=== PATIENT | female | born 1985 | race Caucasian/White ===

== ENCOUNTER 2019-01-31 11:50 | Inpatient (IN) | payer MEDICAID, OTHER ==
[~2019-01-31] VITALS: Ht 170.2 cm; Wt 78.0 kg
[2019-01-31] VITALS (12 sets, daily range): BP systolic 88–132; BP diastolic 45–71
[~2019-01-31 11:50] MED LIST: GADODIAMIDE 2.5 MMOL/5 ML VIAL IJ ONE; GADODIAMIDE 5 MMOL/10 ML VIAL IJ ONE
--- NOTE | 2019-01-31 11:57 | NUR ---
C/O R SIDE OF THE FACE NUMBNESS AND DIZZY SINCE YESTERDAY 5PM. ALSO RIGHT-SIDED WEAKNESS. HAS HEADACHE 8/. SPEECH IS SLOW AND WEAK, BUT NO EVIDENCE OF SLURRING PRESENT. PT DENIES DIFFICULTY SWALLOWING. SHE IS AOX4, AMB, VSS, RR EVEN AND UNLABORED. DENIES SOB, N/V, SKIN INTACT. SEEN BY DR AHN.
--- NOTE | 2019-01-31 11:59 | NUR ---
CODE STROKE IMPLEMENTED
[2019-01-31 12:08] LABS: BASOPHILS # (AUTO) 0.1 /CMM (0.0-0.2); BASOPHILS % (AUTO) 0.8 % (0.0-2.0); EOSINOPHILS % (AUTO) 1.6 % (0.0-6.0); HEMATOCRIT 41 % (33-45); HEMOGLOBIN 13.6 g/dL (11.5-14.8); LYMPHOCYTES # (AUTO) 2.8 /CMM (0.8-4.8); LYMPHOCYTES % (AUTO) 43.8 % (20.0-44.0); MEAN CORPUSCULAR HGB CONC 33 g/dl (31.0-36.0); MEAN CORPUSCULAR VOLUME 94 fL (82-100); MONOCYTES # (AUTO) 0.4 /CMM (0.1-1.30); MONOCYTES % (AUTO) 5.9 % (2.0-12.0); NEUTROPHILS % (AUTO) 47.9 % (43.0-81.0); PLATELET COUNT (AUTO) 215 /CMM (150-450); RED BLOOD CELL COUNT(AUTO) 4.37 MIL/uL (4.0-5.2); WHITE BLOOD COUNT (AUTO) 6.4 K/uL (4.3-11.0)
[2019-01-31] MEDS ORDERED: IV NS 0.9% 250 ML IV ONE (12:08)
[2019-01-31] MEDS ORDERED: CT SWABBABLE VALVE TRANS SET 1 EA INFUS.SET MC ONE (12:08)
[2019-01-31] MEDS ORDERED: IOHEXOL-350 100 ML VIAL IV ONE (12:08)
[2019-01-31 12:16] LABS: CALCIUM, SERUM 9.1 mg/dL (8.5-10.1); CARBON DIOXIDE 28 mmol/L (21-32); CHLORIDE 106 mmol/L (98-107); CREATININE 0.7 mg/dL (0.6-1.3); GLUCOSE 90 mg/dL (74-106); POTASSIUM 3.7 mmol/L (3.5-5.1); SODIUM SERUM 144 mmol/L (136-145); UREA NITROGEN, BLOOD 17 mg/dL (7-18)
[2019-01-31 12:21] LABS: ALANINE AMINOTRANSFERASE 22 U/L (12-78); ALBUMIN 4.1 g/dL (3.4-5.0); ALKALINE PHOSPHATASE 82 U/L (46-116); ASPARTATE AMINOTRANSFERASE 12 U/L (15-37); BILIRUBIN,DIRECT 0.1 mg/dL (0.0-0.2); BILIRUBIN,TOTAL 0.2 mg/dL (0.2-1.0)
[2019-01-31] MEDS ORDERED: ASPIRIN 325 MG TABLET ONE (12:22)
[2019-01-31 12:28] LABS: CHOLESTEROL 166 mg/dL (<200); HDL CHOLESTEROL 64 mg/dL (40-60); LDL 92 mg/dL (0-99); TRIGLYCERIDES 90 mg/dL (30-150)
--- NOTE | 2019-01-31 12:28 | NUR ---
DUE TO PT ABILITY TO SWALLOW, PO MEDICATION GIVEN. NO COUGHING OR CHOKING EVIDENT.
[2019-01-31] MEDS ORDERED: ASPIRIN 325 MG TABLET PO ONE (12:30)
--- NOTE | 2019-01-31 12:49 | NUR ---
HOUSE SUP CALLED FOR ICU BED
--- NOTE | 2019-01-31 12:56 | NUR ---
DR BENTON, NEURO PAGED.
--- NOTE | 2019-01-31 13:13 | NUR ---
DR BENTON CALLED [phone]
--- NOTE | 2019-01-31 13:20 | NUR ---
ASSISTED PT TO BATHROOM. URINE SENT TO STAT LAB
--- NOTE | 2019-01-31 13:30 | NUR ---
ICU BED 254 GIVEN
--- NOTE | 2019-01-31 13:41 | NUR ---
DR BYERS CALLED FROM [facility]. ER WILL CALL BACK
--- NOTE | 2019-01-31 13:51 | NUR ---
REPORT GIVEN TO [facility] FOR ICU 254
--- NOTE | 2019-01-31 14:20 | NUR ---
PT [facility]
--- NOTE | 2019-01-31 15:15 | NUR ---
INITIAL DOUGH SCALER AND MIXER NOTE RCVD PT AWAKE AND ALERT, SR/SB ON MONITOR, ON RA TOLERATING WELL, CONTINENT OF BOWEL AND URINE, SKIN INTACT. NEURO ASSESSMENT DONE PERIPHERAL VISION OVER LEFT SIDE PT SEES DOUBLE, RIGHT EYE SENSITIVE TO BRIGHT LIGHT, PUPILS EQUAL AND RESPONSIVE, DECREASED SENSATION OVER RIGHT ANTERIOR FOOT, RIGHT UPPER AND LOWER EXTREMITY REMAINS NUMB AND FEELS HEAVY PER PT'S REPORT, FULL ROM WITH ALL EXTREMITIES, DRIFT NOTED WITH RUE AND RLE DROPS TO BED BEFORE FIVE SECONDS. FINDINGS REPORTED TO DR. DOWNING WHO ACKNOWLEDGED. NO NEW ORDERS RCVD. WILL CONTINUE TO MONITOR.
--- NOTE | 2019-01-31 17:39 | NUR ---
TEXTED DR. ZARAGOZA FOR MRI APPROVAL.
--- NOTE | 2019-01-31 18:52 | NUR ---
CONTENT ADMINISTRATOR NOTE PT REMAINS STABLE, TELE STATUS PER DR. DOWNING, ON RA TOLERATING WELL, SR ON MONITOR, APPEARS MORE STEADY WHEN AMBULATING, TOLERATED PO INTAKE WELL. PT STATES TO FEEL MUCH BETTER NOW. PT'S CARE ENDORSED TO REGIONAL MAINTENANCE MANAGER RN FOR CONTINUITY OF CARE, BE DIN LOW AND LOCKED POSITION. CALL LIGHT WITHIN REACH.
--- NOTE | 2019-01-31 22:00 | NUR ---
RESULTS OF MRI RELAYED TO DR DOWNING
[2019-02-01] VITALS (8 sets, daily range): BP systolic 83–112; BP diastolic 50–72
--- NOTE | 2019-02-01 04:09 | NUR ---
REPORT GIVEN TO ALLI REID IN 3W, PT TO BED 325-2
--- NOTE | 2019-02-01 05:00 | NUR ---
MATLAB DEVELOPER NOTE: RECEIVED PATIENT FROM ICU, NO ACUTE DISTRESS NOTED. BREATHING EVEN AND UNLABORED, NO SOB NOTED. IV TO RAC IN PLACE. BED LOCKED AND IN LOWEST POSITION, CALL LIGHT IN REACH. WILL CONTINUE TO MONITOR.
[2019-02-01 05:31] LABS: THYROID STIMULATING HORMONE 1.214 uIU/mL (0.358-3.74)
--- NOTE | 2019-02-01 06:20 | NUR ---
MARINE RESOURCE ECONOMIST NOTE: PATIENT RESTING IN BED, NO ACUTE DISTRESS NOTED. BREATHING EVEN AND UNLABORED, NO SOB NOTED. IV TO RAC IN PLACE. BED LOCKED AND IN LOWEST POSITION, CALL LIGHT IN REACH. WILL ENDORSE TO DAY NURSE TO CONTINUE WITH PLAN OF CARE.
--- NOTE | 2019-02-01 08:52 | NUR ---
MS/RN Medications No medications scheduled at this time, denies pain.
--- NOTE | 2019-02-01 09:15 | NUR ---
MS/RN S/B Dr Marx Seen by Dr Marx - await review by neurologist.
--- NOTE | 2019-02-01 09:20 | NUR ---
MS/RN Headache Complaining of headache, no orders for any pain medication. Dr Marx made aware and order given for tylenol only until seen by neurologist.
[2019-02-01] MEDS ORDERED: ACETAMINOPHEN 325 MG TABLET PO PRN (09:30)
[2019-02-01] MEDS ORDERED: Magnesium 1GM/D5W 100ML PREMIX PIGGYBACK IV ONE (09:30)
[2019-02-01] MEDS ORDERED: PROCHLORPERAZINE EDISYLATE 10 MG/2 ML VIAL IVP PRN (09:30)
[2019-02-01] MEDS ORDERED: Magnesium 1GM/D5W 100ML PREMIX 100 ML IV SCH (10:00)
--- NOTE | 2019-02-01 13:00 | NUR ---
MS/RN Rounds Awaiting call back from Dr Marx, patient requesting to see neurologist and be discharged.
--- NOTE | 2019-02-01 15:32 | NUR ---
MS/RN Dr De Anda Call placed to Dr De Anda per Dr Marx's order.
--- NOTE | 2019-02-01 16:00 | NUR ---
MS/RN Room change Patient moved to room 329 to allow for privacy when breast feeding baby son.
--- NOTE | 2019-02-01 17:53 | NUR ---
MS/RN S/B Dr Mo Seen by Dr Mo - waiting for consultation notes, ibuprofen 600mg ordered for headache.
[2019-02-01] MEDS ORDERED: IBUPROFEN 600 MG TABLET PO PRN (18:00)
--- NOTE | 2019-02-01 18:17 | NUR ---
MS/RN End note Patient remains in stable condition, all needs attended, will endorse to nightman.
[2019-02-01] MEDS ORDERED: ASPI-1152 PO (18:38)
--- NOTE | 2019-02-01 19:00 | NUR ---
SWORD SWALLOWER NOTES Received patient in bed, alert, oriented x 4. Breathing even and unlabored. not in any distress. no complaints of pain or discomfort as of this time. Patient stable as endorsed by the morning shift RN. Will continue to monitor
--- NOTE | 2019-02-01 20:30 | NUR ---
RN NOTES Patient for discharge. Discharge instructions given. Disc for all radiology imaging given. IV line and ID band taken out
--- NOTE | 2019-02-01 21:00 | NUR ---
RN NOTES Patient wheeled down to the parking lot by EMBROIDERY SUPERVISOR in stable condition. All belongings brought down with patient
== END 2019-02-01 21:00 | disposition home or self-care (01) | DRG 47 ==
LOC: ER 11:56 → ICU 14:02 → TELE 02-01 04:46
PROVIDERS: ADMIT Internal Medicine; ATTEND Internal Medicine
DX: G45.9 Transient cerebral ischemic attack, unspecified (principal); G43.909 Migraine, unspecified, not intractable, without status migrainosus; R29.810 Facial weakness
CPT/HCPCS: 36415; 70450-TC; 70496-TC; 70553-TC; 71045-TC; 80048-TC; 80061-TC; 80076-TC; 80305; 84443-TC; 84484-TC; 84703-TC; 85025-TC; 85652-TC; 85730-TC; 86850-TC; 87081-TC; 93307-TC; 93880-TC; 93970-TC; 97535-TC; A9579; G0378; J0780; J7050; Q9967

== ENCOUNTER 2019-11-13 13:59 | Emergency (ER) | payer MEDICAID ==
[~2019-11-13] VITALS: Ht 167.6 cm; Wt 72.6 kg
[~2019-11-13 13:59] MED LIST changes: +ASPI-1152 PO; -GADODIAMIDE 2.5 MMOL/5 ML VIAL IJ ONE; -GADODIAMIDE 5 MMOL/10 ML VIAL IJ ONE
[2019-11-13 14:06] VITALS: BP 107/67
--- NOTE | 2019-11-13 14:31 | NUR ---
Patient discharged to home in stable condition. Written and verbal after care instructions given. Patient verbalizes understanding of instruction.
== END 2019-11-13 14:33 | disposition home or self-care (01) ==
LOC: ER 14:01
DX: L91.8 Other hypertrophic disorders of the skin (principal); Z79.82 Long term (current) use of aspirin

== ENCOUNTER 2021-01-06 12:31 | Emergency (ER) | payer MEDICAID ==
[~2021-01-06] VITALS: Ht 167.6 cm; Wt 77.1 kg
[~2021-01-06 12:31] MED LIST changes: -ASPI-1152 PO; +ASPI-1420 PO
--- NOTE | 2021-01-06 12:50 | NUR ---
MIGRAINE HEADACHE. PATIENT A/OX4, BREATHING EVEN AND UNLABORED, EYES ARE SENSITIVE TO LIGHT PER PATIENT. NEEDS ATTENDED.
[2021-01-06] MEDS ORDERED: IV NS 0.9% 1,000 ML BAG IV ONE (13:30)
[2021-01-06] MEDS ORDERED: KETOROLAC TROMETHAMINE INJ 30 MG/ML VIAL IV ONE (13:30)
[2021-01-06] MEDS ORDERED: METOCLOPRAMIDE HCL 10 MG/2 ML VIAL IV ONE (13:30)
[2021-01-06] MEDS ORDERED: diphenhydrAMINE HCL 50 MG/ML VIAL IV ONE (13:30)
[2021-01-06] MEDS ORDERED: diphenhydrAMINE HCL 50 MG/ML VIAL ONE (13:36)
[2021-01-06] MEDS ORDERED: KETOROLAC TROMETHAMINE INJ 30 MG/ML VIAL ONE (13:36)
[2021-01-06] MEDS ORDERED: METOCLOPRAMIDE HCL 10 MG/2 ML VIAL ONE (13:36)
--- NOTE | 2021-01-06 13:48 | NUR ---
PATIENT IS REFUSING TO GIVE ANY URINE AT THIS TIME.
--- NOTE | 2021-01-06 14:24 | NUR ---
Patient alert and oriented x4.Patient discharged to home in stable condition. Written and verbal after care instructions given. Patient verbalizes understanding of instruction. IV line removed, no bleeding noted but the site ocvered with folded 2x2. The patient left the hopsital in stable condition and accompanied by family member.
[2021-01-06 14:28] VITALS: BP 114/73
== END 2021-01-06 14:29 | disposition home or self-care (01) ==
LOC: ER 12:31
DX: G43.909 Migraine, unspecified, not intractable, without status migrainosus (principal); R11.0 Nausea; Z79.82 Long term (current) use of aspirin
CPT/HCPCS: 96361; 96374; 96375; 99284; J1200; J2765; J7030; J1885

== ENCOUNTER 2021-05-22 11:25 | Emergency (ER) | payer MEDICAID ==
[~2021-05-22] VITALS: Ht 167.6 cm; Wt 73.0 kg
--- NOTE | 2021-05-22 11:30 | NUR ---
LOW ABDOMINAL PAIN,VAGINAL SPOTTING X 2 DAYS, HOME CAME UP POSITIVE, HAS IUD. PATIENT ASSISTED TO ROOM 16. CHANGED INTO A GOWN. ATTACHED TO THE SHEET METAL OPERATOR.
[2021-05-22] MEDS ORDERED: ACETAMINOPHEN ES 500 MG TABLET ONE (11:44)
--- NOTE | 2021-05-22 11:45 | NUR ---
UA SENT TO LAB.
--- NOTE | 2021-05-22 11:48 | NUR ---
MULTISENSOR INTELLIGENCE OFFICER AT BEDSIDE FOR BLOOD DRAWN. PATIENT C/O LOWER ABDOMINAL PAIN, TYLENOL GIVEN.
[2021-05-22 11:57] LABS: BILIRUBIN,URINE Negative (NEGATIVE); COLOR,URINE YELLOW (YELLOW); LEUKOCYTE ESTERASE ,URINE Negative (NEGATIVE); NITRITE, URINE Negative (NEGATIVE); PROTEIN,URINE Negative (NEGATIVE); UGLUCOSE Negative (NEGATIVE); UROBILINOGEN,URINE 0.2 EU/dL (0.2)
[2021-05-22] MEDS ORDERED: ACETAMINOPHEN ES 500 MG TABLET PO ONE (12:00)
[2021-05-22 12:05] LABS: BASOPHILS % (AUTO) 0.4 % (0.0-2.0); HEMATOCRIT 37 % (33-45); HEMOGLOBIN 12.5 g/dL (11.5-14.8); LYMPHOCYTES # (AUTO) 2.1 K/uL (0.8-4.8); LYMPHOCYTES % (AUTO) 31.3 % (20.0-44.0); MEAN CORPUSCULAR HGB CONC 34 g/dl (31.0-36.0); MEAN CORPUSCULAR VOLUME 93 fL (82-100); MONOCYTES # (AUTO) 0.3 K/uL (0.1-1.30); MONOCYTES % (AUTO) 4.1 % (2.0-12.0); NEUTROPHILS # (AUTO) 4.3 K/uL (1.8-8.9); NEUTROPHILS % (AUTO) 63.2 % (43.0-81.0); PLATELET COUNT (AUTO) 212 K/uL (150-450); RED BLOOD CELL COUNT(AUTO) 3.92 MIL/uL (4.0-5.2); WHITE BLOOD COUNT (AUTO) 6.9 K/uL (4.3-11.0)
[2021-05-22 12:13] LABS: CALCIUM, SERUM 8.7 mg/dL (8.5-10.1); CREATININE 0.6 mg/dL (0.6-1.3); POTASSIUM 3.3 mmol/L (3.5-5.1)
--- NOTE | 2021-05-22 13:17 | NUR ---
Patient a/ox4, breathing even and unlabored, no sob noted, ambulatory with steady gait. Patient discharged to home in stable condition. Written and verbal after care instructions given. Patient verbalizes understanding of instruction.
[2021-05-22 13:18] VITALS: BP 105/66
== END 2021-05-22 13:18 | disposition home or self-care (01) ==
LOC: ER 11:34
DX: O26.91 Pregnancy related conditions, unspecified, first trimester (principal); R10.30 Lower abdominal pain, unspecified; Z3A.08 8 weeks gestation of pregnancy
CPT/HCPCS: 36415; 76805-TC; 80048-TC; 84702-TC; 85025-TC; 86850-TC